=== PATIENT | female | born 1930 | race Caucasian/White ===

== ENCOUNTER → 2016-11-18 | Outpatient (CLI) | payer OTHER ==
[~2016-11-18] MED LIST: NS 100 ML IV 100 ML IV ONE
--- NOTE | 2016-11-18 14:14 | CT ---
HISTORY: Jaundice, hypertension, history of colon cancer. Prior appendectomy, colon surgery and hyste rectomy. Study: CT abdomen and pelvis with oral contrast Comparison: No priors Technique: Multiple axial images of the abdomen and pelvis were obtained from the lung bases to the pubic symphy sis following the administration of oral contrast. Apparently IV contrast materials were not success fully administered. Coronal and sagittal images are also reviewed. Dose reduction techniques utilized automatic exposure control. Findings: A few small areas of linear scarring are present in the lung bases. A large fixed hiatal hernia is pr esent containing stomach. The liver is normal in size. There is diffuse intra and extrahepatic biliar y ductal ectasia. Common bile duct is quite large measuring 1.53 cm in diameter. The common duct fill ing defect is not identified on this exam. MRCP will likely be needed. According to patient history, the gallbladder should be present but is not clearly identified. This may represent the structure see n on series 3, image 28 in the lower kyle hepatis region.. The spleen, pancreas, kidneys, and adren al glands are unremarkable in their CT appearance. Atherosclerotic calcifications are present involvi ng the abdominal aorta which is tortuous but not apparently aneurysmal.. No significant mesenteric l ymphadenopathy or stranding can be observed. No free fluid or free air is seen within the abdomen. No bowel wall thickening or bowel dilatation is present. The cecum and ascending colon regions have b een surgically resected. The small bowel-colon anastomosis is present in the right upper quadrant conchita ears patent and nonobstructive. Uncomplicated appearing sigmoid colon diverticulosis is present.. The urinary bladder is grossly unremarkable. Multilevel degenerative disc disease is present involving the visualized thoracic and lumbar spine levels. IMPRESSION: Marked dilatation of intra and extrahepatic bile ducts as described. A filling defect within the comm on bile duct is not identified. MRCP will likely be needed. Large fixed hiatal hernia. Patent small bowel-colon anastomosis in the right upper abdominal quadrant. Reported By:
== END | disposition home or self-care (01) ==
LOC: RAD 12:07
PROVIDERS: ATTEND Internal Medicine
DX: R17 Unspecified jaundice (principal); K44.9 Diaphragmatic hernia without obstruction or gangrene; K63.89 Other specified diseases of intestine
CPT/HCPCS: 74176; A4222